=== PATIENT | male | born 1945 | race Caucasian/White ===

== ENCOUNTER 2016-10-20 01:14 | Inpatient (IN) | payer MEDICARE, MEDICAID ==
[~2016-10-20] VITALS: Ht 170.2 cm; Wt 81.6 kg
[~2016-10-20 01:14] MED LIST: ativan; carbamazepine
[2016-10-20] MEDS ORDERED: PRED-170 PO (01:31)
[2016-10-20] MEDS ORDERED: CARB200C4 PO (01:31)
[2016-10-20] MEDS ORDERED: METO25TA3 PO (01:31)
[2016-10-20] MEDS ORDERED: RISP1TAB27 PO (01:31)
[2016-10-20 01:59] LABS: BASOPHILS # (AUTO) 0.1 K/uL (0.0-8.0); BASOPHILS % (AUTO) 0.6 % (0.0-2.0); EOSINOPHILS # (AUTO) 0.1 K/uL (0.0-0.7); HEMATOCRIT 38.2 % (40-50); HEMOGLOBIN 12.8 G/DL (14.0-18.0); LYMPHOCYTES % (AUTO) 21.1 % (20.5-51.5); MEAN CORPUSCULAR HEMOGLOBIN 28.8 UUG (27.0-31.0); MEAN CORPUSCULAR HGB CONC 34 g/dL (32.0-37.0); MEAN CORPUSCULAR VOLUME 85.8 FL (82.0-92.0); MONOCYTES # (AUTO) 0.8 K/UL (0.1-1.30); MONOCYTES % (AUTO) 8.2 % (0.0-11.0); NEUTROPHILS # (AUTO) 6.6 K/UL (1.8-8.9); NEUTROPHILS % (AUTO) 69.1 % (38.5-71.5); PLATELET COUNT (AUTO) 319 K/UL (150-450); RED BLOOD CELL COUNT(AUTO) 4.45 MIL/UL (4.7-6.1); WHITE BLOOD COUNT (AUTO) 9.6 K/UL (4.0-11.2)
[2016-10-20 02:14] LABS: ALANINE AMINOTRANSFERASE 21 U/L (16-63); ALKALINE PHOSPHATASE 98 U/L (50-136); ASPARTATE AMINOTRANSFERASE 22 U/L (15-37); BILIRUBIN,DIRECT 0.1 mg/dL (0.0-0.2); BILIRUBIN,TOTAL 0.3 mg/dL (0.2-1.0); CARBON DIOXIDE 32 mmol/L (21-32); CHLORIDE 102 mmol/L (98-107); CREATININE 0.8 mg/dL (0.6-1.3); GLUCOSE 102 mg/dL (74-106); POTASSIUM 3.8 mmol/L (3.5-5.1); TOTAL PROTEIN, SERUM 6.7 g/dL (6.4-8.2); UREA NITROGEN, BLOOD 9 mg/dL (7-18)
[2016-10-20 02:23] LABS: ACETAMINOPHEN < 2.0 ug/mL (10-30)
[2016-10-20 02:29] LABS: ETHANOL < 3 MG/DL (0-0)
[2016-10-20] MEDS ORDERED: LEVOFLOXACIN 750MG/D5W 150 ML IV ONE (04:15)
[2016-10-20] MEDS ORDERED: LEVOFLOXACIN 750MG/D5W 0 ML IV ONE (04:34)
[2016-10-20] MEDS ORDERED: CEFTRIAXONE 1 G VIAL IM ONE (04:45)
[2016-10-20] MEDS ORDERED: AZITHROMYCIN 250 MG TABLET PO ONE (04:45)
[2016-10-20] MEDS ORDERED: LORAZEPAM 2 MG/1 ML VIAL IM ONE (04:45)
[2016-10-20] MEDS ORDERED: LORAZEPAM 2 MG/1 ML VIAL ONE (04:51)
[2016-10-20] MEDS ORDERED: CEFTRIAXONE 1 G VIAL ONE (04:51)
[2016-10-20] MEDS ORDERED: LIDOCAINE HCL 1% 20 ML VIAL ONE (04:52)
[2016-10-20] MEDS ORDERED: AZITHROMYCIN 250 MG TABLET ONE (04:54)
[2016-10-20] MEDS ORDERED: Z GUARD REMEDY PASTE 57 GM TUBE TOP PRN (05:15)
[2016-10-20] MEDS ORDERED: ACETAMINOPHEN 325 MG TABLET PO PRN ×2 (05:15→18:45)
[2016-10-20] MEDS ORDERED: ONDANSETRON 4 MG/2 ML VIAL IV PRN ×2 (05:15→18:45)
[2016-10-20] MEDS ORDERED: MAGNESIUM HYDROXIDE 30 ML LIQUID UDC PO PRN (05:15)
[2016-10-20] MEDS: PANTOPRAZOLE SODIUM 40 MG TABLET.DR PO SCH (07:45)
[2016-10-20] MEDS ORDERED: PANTOPRAZOLE SODIUM 40 MG TABLET.DR PO ONE (07:56)
[2016-10-20 08:08] LABS: BASOPHILS # (AUTO) 0.1 K/uL (0.0-8.0); BASOPHILS % (AUTO) 0.6 % (0.0-2.0); EOSINOPHILS # (AUTO) 0.2 K/uL (0.0-0.7); EOSINOPHILS % (AUTO) 1.6 % (0.0-7.0); HEMATOCRIT 40.5 % (40-50); LYMPHOCYTES # (AUTO) 1.8 K/UL (0.8-4.8); LYMPHOCYTES % (AUTO) 18.5 % (20.5-51.5); MEAN CORPUSCULAR HEMOGLOBIN 28.1 UUG (27.0-31.0); MEAN CORPUSCULAR HGB CONC 32 g/dL (32.0-37.0); MEAN CORPUSCULAR VOLUME 87.4 FL (82.0-92.0); MONOCYTES # (AUTO) 0.8 K/UL (0.1-1.30); MONOCYTES % (AUTO) 8.5 % (0.0-11.0); NEUTROPHILS # (AUTO) 6.8 K/UL (1.8-8.9); NEUTROPHILS % (AUTO) 70.8 % (38.5-71.5); PLATELET COUNT (AUTO) 323 K/UL (150-450); RED BLOOD CELL COUNT(AUTO) 4.64 MIL/UL (4.7-6.1); WHITE BLOOD COUNT (AUTO) 9.6 K/UL (4.0-11.2)
[2016-10-20 08:13] LABS: ABG BASE EXCESS 0.8 mmol/L; ABG HCO3 28.9 mmol/L; ABG PCO2 62.1 mmHg (35.0-45.0); ABG PH 7.286 (7.350-7.450); ABG PO2 102.7 mmHg (75.0-100.0); ABG SITE RIGHT RADIAL; ABG TOTAL HEMOGLOBIN 13.5 G/dL (13.5-18.0); COHb 4.5 % (0.5-1.5); MetHb 0.1 % (0.0-1.5); O2Hb 92.6 % (94.0-97.0); VENT MODE Nasal Cannula
[2016-10-20 08:15] LABS: CARBON DIOXIDE 34 mmol/L (21-32); CHLORIDE 104 mmol/L (98-107); CREATININE 1.1 mg/dL (0.6-1.3); GLUCOSE 104 mg/dL (74-106); POTASSIUM 4.4 mmol/L (3.5-5.1); UREA NITROGEN, BLOOD 13 mg/dL (7-18)
[2016-10-20] MEDS: ENOXAPARIN SODIUM 30 MG/0.3 ML DISP.SYRIN SUBCUT SCH (08:59)
[2016-10-20] MEDS ORDERED: ENOXAPARIN SODIUM 30 MG/0.3 ML DISP.SYRIN ONE (09:10)
[2016-10-20] MEDS: LORAZEPAM 2 MG/1 ML VIAL IV PRN ×2 (12:18→18:13)
[2016-10-20 16:58] VITALS: BP 159/78
[2016-10-20 17:33] LABS: *BILIRUBIN,URIN NEGATIVE (NEGATIVE); *BLOOD, URINE NEGATIVE (NEGATIVE); *CLARITY,URINE SLIGHTLY CLOUDY (CLEAR); *COLOR,URINE YELLOW (YELLOW); *KETONES,URINE NEGATIVE (NEGATIVE); *PROTEIN,URINE 1+ (NEGATIVE); *UROBILINOGEN,URINE 0.2 E.U./dl (NORMAL); LEUKOCYTE ESTERASE ,URINE NEGATIVE (NEGATIVE); NITRITE, URINE NEGATIVE (NEGATIVE); UGLUCOSE NEGATIVE (NEGATIVE)
[2016-10-20 17:40] LABS: *AMPHETAMINE, URINE NEGATIVE (NEGATIVE); *BARBITURATE, URINE NEGATIVE (NEGATIVE); *CANNABINOID, URINE NEGATIVE (NEGATIVE); *COCCAINE, URINE NEGATIVE (NEGATIVE); *OPIATE, URINE NEGATIVE (NEGATIVE); *PHENCYCLIDINE SCREEN,URINE NEGATIVE (NEGATIVE)
[2016-10-20 17:55] LABS: BACTERIA,URINE NONE SEEN /HPF (NONE SEEN); RBC,URINE 0-3 /HPF (0-3); SQUAMOUS EPITHELIAL CELL,UR NONE SEEN /HPF (NONE SEEN); WBC,URINE 0-3 /HPF (0-3)
[2016-10-20] MEDS ORDERED: MORPHINE SULFATE 2 MG/1 ML DISP.SYRIN IV PRN (18:45)
[2016-10-20] MEDS ORDERED: AZITHROMYCIN IV 500 MG in IV DEXTROSE 5% 250 ML IV SCH (18:45)
[2016-10-20] MEDS ORDERED: CEFTRIAXONE 1 G in IV DEXTROSE 5% 50 ML IV SCH (18:45)
[2016-10-20] MEDS ORDERED: LORAZEPAM 2 MG/1 ML VIAL IV PRN (18:45)
[2016-10-20] MEDS ORDERED: IV 1/2NS 1000 ML 1,000 ML IV PRN (18:45)
[2016-10-20] MEDS: METOPROLOL TARTRATE 25 MG TABLET PO SCH ×2 (19:45→21:00)
[2016-10-20] MEDS: risperiDONE 1 MG TABLET PO SCH (19:45)
[2016-10-20] MEDS ORDERED: MORPHINE SULFATE 4 MG/1 ML DISP.SYRIN IV PRN (20:15)
[2016-10-20] MEDS: ZOLPIDEM 5 MG TABLET PO PRN (22:59)
[2016-10-21] VITALS: BP 137/70
[2016-10-21] MEDS: LORAZEPAM 2 MG/1 ML VIAL IV PRN ×2 (01:15→08:53)
[2016-10-21 04:17] VITALS: BP 149/69
[2016-10-21] MEDS: CEFTRIAXONE 1 G in IV DEXTROSE 5% 50 ML IV SCH (05:42)
[2016-10-21] MEDS: risperiDONE 1 MG TABLET PO SCH ×2 (05:43→17:32)
[2016-10-21] MEDS: PANTOPRAZOLE SODIUM 40 MG TABLET.DR PO SCH (06:54)
[2016-10-21] MEDS ORDERED: PANTOPRAZOLE SODIUM 40 MG TABLET.DR PO SCH (07:00)
[2016-10-21 07:08] LABS: BASOPHILS % (AUTO) 0.5 % (0.0-2.0); EOSINOPHILS # (AUTO) 0.1 K/uL (0.0-0.7); HEMATOCRIT 42.9 % (40-50); HEMOGLOBIN 13.4 G/DL (14.0-18.0); LYMPHOCYTES # (AUTO) 1.3 K/UL (0.8-4.8); LYMPHOCYTES % (AUTO) 13.2 % (20.5-51.5); MEAN CORPUSCULAR HEMOGLOBIN 27.1 UUG (27.0-31.0); MEAN CORPUSCULAR HGB CONC 31 g/dL (32.0-37.0); MEAN CORPUSCULAR VOLUME 86.8 FL (82.0-92.0); MONOCYTES # (AUTO) 0.7 K/UL (0.1-1.30); MONOCYTES % (AUTO) 6.9 % (0.0-11.0); NEUTROPHILS # (AUTO) 7.8 K/UL (1.8-8.9); NEUTROPHILS % (AUTO) 78.4 % (38.5-71.5); PLATELET COUNT (AUTO) 276 K/UL (150-450); RED BLOOD CELL COUNT(AUTO) 4.94 MIL/UL (4.7-6.1); WHITE BLOOD COUNT (AUTO) 9.9 K/UL (4.0-11.2)
[2016-10-21 07:34] LABS: ALANINE AMINOTRANSFERASE 22 U/L (16-63); ALKALINE PHOSPHATASE 99 U/L (50-136); ASPARTATE AMINOTRANSFERASE 26 U/L (15-37); BILIRUBIN,TOTAL 0.2 mg/dL (0.2-1.0); CARBON DIOXIDE 32 mmol/L (21-32); CHLORIDE 104 mmol/L (98-107); CHOLESTEROL 205 mg/dL (<200); GLUCOSE 86 mg/dL (74-106); HDL CHOLESTEROL 44 mg/dL (40-60); PHOSPHOROUS 3.2 mg/dL (2.5-4.9); POTASSIUM 4.2 mmol/L (3.5-5.1); TOTAL PROTEIN, SERUM 6.6 g/dL (6.4-8.2); TRIGLYCERIDES 115 MG/DL (30-150); UREA NITROGEN, BLOOD 13 mg/dL (7-18)
[2016-10-21 08:37] LABS: THYROID STIMULATING HORMONE 0.677 mIU/mL (0.358-3.740)
[2016-10-21] MEDS: METOPROLOL TARTRATE 25 MG TABLET PO SCH ×2 (08:53→20:56)
[2016-10-21] MEDS: ENOXAPARIN SODIUM 30 MG/0.3 ML DISP.SYRIN SUBCUT SCH (08:55)
[2016-10-21] MEDS: AZITHROMYCIN IV 500 MG in IV DEXTROSE 5% 250 ML IV SCH ×2 (09:00→12:26)
[2016-10-21 09:28] LABS: IRON, SERUM 38 ug/dL (50-175)
[2016-10-21 12:00] VITALS: BP 121/68
[2016-10-21 13:20] VITALS: BP 121/68
[2016-10-21] MEDS: BENZTROPINE MESYLATE 1 MG TABLET PO SCH (19:34)
[2016-10-21] MEDS: CARBAMAZEPINE 200 MG TABLET PO SCH (19:34)
[2016-10-21 20:52] VITALS: BP 137/67
[2016-10-21] MEDS: LACTOBACILLUS RHAMNOSUS GG 1 EACH CAPSULE PO SCH (20:56)
[2016-10-21] MEDS: ATORVASTATIN 20 MG TABLET PO SCH (20:56)
[2016-10-22] MEDS: ZOLPIDEM 5 MG TABLET PO PRN (00:30)
[2016-10-22] MEDS: LORAZEPAM 2 MG/1 ML VIAL IV PRN ×2 (00:45→20:41)
[2016-10-22] MEDS: ALBUTEROL SULFATE 2.5 MG/3 ML NEBU NEB PRN ×2 (02:05→16:52)
[2016-10-22] MEDS: IPRATROPIUM BROMIDE 0.5 MG/2.5 ML NEBU NEB PRN (02:05)
[2016-10-22 04:27] VITALS: BP 139/52
[2016-10-22] MEDS: CEFTRIAXONE 1 G in IV DEXTROSE 5% 50 ML IV SCH (05:28)
[2016-10-22] MEDS: PANTOPRAZOLE SODIUM 40 MG TABLET.DR PO SCH (07:06)
[2016-10-22 08:00] VITALS: BP 119/68
[2016-10-22] MEDS: AZITHROMYCIN IV 500 MG in IV DEXTROSE 5% 250 ML IV SCH ×2 (08:17→08:58)
[2016-10-22] MEDS: CARBAMAZEPINE 200 MG TABLET PO SCH ×3 (08:44→17:41)
[2016-10-22] MEDS: METOPROLOL TARTRATE 25 MG TABLET PO SCH ×2 (08:44→20:33)
[2016-10-22] MEDS: HALOPERIDOL LACTATE 10 MG/5 ML ORAL SOLUTION UDC PO SCH ×2 (08:44→17:43)
[2016-10-22] MEDS: BENZTROPINE MESYLATE 1 MG TABLET PO SCH ×2 (08:44→17:41)
[2016-10-22] MEDS: LACTOBACILLUS RHAMNOSUS GG 1 EACH CAPSULE PO SCH ×2 (08:44→20:33)
[2016-10-22] MEDS: ENOXAPARIN SODIUM 30 MG/0.3 ML DISP.SYRIN SUBCUT SCH ×2 (08:45→09:02)
[2016-10-22 16:57] VITALS: BP 131/73
[2016-10-22 20:00] VITALS: BP 134/78
[2016-10-22] MEDS: ATORVASTATIN 20 MG TABLET PO SCH (20:33)
[2016-10-23] MEDS: ALBUTEROL SULFATE 2.5 MG/3 ML NEBU NEB PRN ×3 (00:13→15:22)
[2016-10-23] MEDS: IPRATROPIUM BROMIDE 0.5 MG/2.5 ML NEBU NEB PRN ×3 (00:13→15:22)
[2016-10-23 05:02] VITALS: BP 145/73
[2016-10-23] MEDS: CEFTRIAXONE 1 G in IV DEXTROSE 5% 50 ML IV SCH (06:49)
[2016-10-23] MEDS: PANTOPRAZOLE SODIUM 40 MG TABLET.DR PO SCH (06:50)
[2016-10-23] MEDS: BENZTROPINE MESYLATE 1 MG TABLET PO SCH ×2 (08:22→17:20)
[2016-10-23] MEDS: CARBAMAZEPINE 200 MG TABLET PO SCH ×3 (08:22→17:20)
[2016-10-23] MEDS: LACTOBACILLUS RHAMNOSUS GG 1 EACH CAPSULE PO SCH ×2 (08:22→20:16)
[2016-10-23] MEDS: HALOPERIDOL LACTATE 10 MG/5 ML ORAL SOLUTION UDC PO SCH ×2 (08:22→17:20)
[2016-10-23] MEDS: METOPROLOL TARTRATE 25 MG TABLET PO SCH ×2 (08:23→20:17)
[2016-10-23] MEDS: ENOXAPARIN SODIUM 30 MG/0.3 ML DISP.SYRIN SUBCUT SCH (08:28)
[2016-10-23] MEDS: AZITHROMYCIN IV 500 MG in IV DEXTROSE 5% 250 ML IV SCH (09:21)
[2016-10-23] MEDS: LORAZEPAM 2 MG/1 ML VIAL IV PRN ×2 (10:42→18:11)
[2016-10-23 15:27] VITALS: BP 138/73
[2016-10-23 20:00] VITALS: BP 129/64
[2016-10-23] MEDS: ATORVASTATIN 20 MG TABLET PO SCH (20:17)
[2016-10-24] MEDS: CEFTRIAXONE 1 G in IV DEXTROSE 5% 50 ML IV SCH (06:12)
[2016-10-24] MEDS: PANTOPRAZOLE SODIUM 40 MG TABLET.DR PO SCH (06:16)
[2016-10-24] MEDS: BENZTROPINE MESYLATE 1 MG TABLET PO SCH ×3 (08:37→17:28)
[2016-10-24] MEDS: LACTOBACILLUS RHAMNOSUS GG 1 EACH CAPSULE PO SCH ×2 (08:37→20:18)
[2016-10-24] MEDS: CARBAMAZEPINE 200 MG TABLET PO SCH ×4 (08:37→17:28)
[2016-10-24] MEDS: HALOPERIDOL LACTATE 10 MG/5 ML ORAL SOLUTION UDC PO SCH ×3 (08:38→17:29)
[2016-10-24] MEDS: ENOXAPARIN SODIUM 30 MG/0.3 ML DISP.SYRIN SUBCUT SCH (08:38)
[2016-10-24] MEDS: METOPROLOL TARTRATE 25 MG TABLET PO SCH ×3 (08:42→11:53)
[2016-10-24 08:51] VITALS: BP 160/73
[2016-10-24] MEDS: AZITHROMYCIN IV 500 MG in IV DEXTROSE 5% 250 ML IV SCH (09:00)
[2016-10-24] MEDS: ALBUTEROL SULFATE 2.5 MG/3 ML NEBU NEB PRN (10:56)
[2016-10-24] MEDS: IPRATROPIUM BROMIDE 0.5 MG/2.5 ML NEBU NEB PRN (10:56)
[2016-10-24 12:44] VITALS: BP 144/75
[2016-10-24 16:00] VITALS: BP 148/86
[2016-10-24 19:00] VITALS: BP 164/73
[2016-10-24] MEDS: ATORVASTATIN 20 MG TABLET PO SCH (20:18)
[2016-10-25 06:23] VITALS: BP 159/70
[2016-10-25] MEDS: PANTOPRAZOLE SODIUM 40 MG TABLET.DR PO SCH (06:32)
[2016-10-25] MEDS: CEFTRIAXONE 1 G in IV DEXTROSE 5% 50 ML IV SCH (06:32)
[2016-10-25] MEDS: AZITHROMYCIN IV 500 MG in IV DEXTROSE 5% 250 ML IV SCH (08:26)
[2016-10-25] MEDS: BENZTROPINE MESYLATE 1 MG TABLET PO SCH ×2 (08:28→17:04)
[2016-10-25] MEDS: LACTOBACILLUS RHAMNOSUS GG 1 EACH CAPSULE PO SCH ×2 (08:28→20:57)
[2016-10-25] MEDS: CARBAMAZEPINE 200 MG TABLET PO SCH ×3 (08:28→17:04)
[2016-10-25] MEDS: HALOPERIDOL LACTATE 10 MG/5 ML ORAL SOLUTION UDC PO SCH ×3 (08:29→17:05)
[2016-10-25] MEDS: ENOXAPARIN SODIUM 30 MG/0.3 ML DISP.SYRIN SUBCUT SCH (08:33)
[2016-10-25] MEDS: METOPROLOL TARTRATE 25 MG TABLET PO SCH ×2 (08:36→21:01)
[2016-10-25] MEDS: ALBUTEROL SULFATE 2.5 MG/3 ML NEBU NEB PRN (09:12)
[2016-10-25] MEDS: IPRATROPIUM BROMIDE 0.5 MG/2.5 ML NEBU NEB PRN (09:12)
[2016-10-25 15:51] VITALS: BP 130/67
[2016-10-25 20:00] VITALS: BP 133/61
[2016-10-25] MEDS: ATORVASTATIN 20 MG TABLET PO SCH (20:57)
[2016-10-26] VITALS: BP 142/63
[2016-10-26] MEDS: CEFTRIAXONE 1 G in IV DEXTROSE 5% 50 ML IV SCH (05:54)
[2016-10-26] MEDS: PANTOPRAZOLE SODIUM 40 MG TABLET.DR PO SCH (06:01)
[2016-10-26] MEDS: CARBAMAZEPINE 200 MG TABLET PO SCH ×3 (08:37→17:24)
[2016-10-26] MEDS: BENZTROPINE MESYLATE 1 MG TABLET PO SCH ×2 (08:37→17:24)
[2016-10-26] MEDS: LACTOBACILLUS RHAMNOSUS GG 1 EACH CAPSULE PO SCH ×2 (08:37→20:28)
[2016-10-26] MEDS: METOPROLOL TARTRATE 25 MG TABLET PO SCH ×2 (08:37→20:28)
[2016-10-26] MEDS: HALOPERIDOL LACTATE 10 MG/5 ML ORAL SOLUTION UDC PO SCH ×2 (08:38→13:24)
[2016-10-26] MEDS: ENOXAPARIN SODIUM 30 MG/0.3 ML DISP.SYRIN SUBCUT SCH (08:39)
[2016-10-26] MEDS: AZITHROMYCIN IV 500 MG in IV DEXTROSE 5% 250 ML IV SCH (09:02)
[2016-10-26] MEDS ORDERED: HALOPERIDOL LACTATE 10 MG/5 ML ORAL SOLUTION UDC PO SCH (17:00)
[2016-10-26] MEDS ORDERED: MENT71OI TOP (17:16)
[2016-10-26] MEDS ORDERED: BENZ1TAB7 PO (17:16)
[2016-10-26] MEDS ORDERED: IPRA0.2S6 NEB (17:16)
[2016-10-26] MEDS ORDERED: CARB200T8 PO (17:16)
[2016-10-26] MEDS ORDERED: METO25TA6 PO (17:16)
[2016-10-26] MEDS ORDERED: ATOR20TA PO (17:16)
[2016-10-26] MEDS ORDERED: ALBU2.5V7 NEB (17:16)
[2016-10-26] MEDS ORDERED: HALO2ORA PO (17:23)
[2016-10-26 20:28] VITALS: BP 144/67
[2016-10-26] MEDS: ATORVASTATIN 20 MG TABLET PO SCH (20:28)
[2016-10-26] MEDS: IPRATROPIUM BROMIDE 0.5 MG/2.5 ML NEBU NEB PRN (21:03)
[2016-10-26] MEDS: ALBUTEROL SULFATE 2.5 MG/3 ML NEBU NEB PRN (21:03)
[2016-10-27] MEDS ORDERED: HALO2TAB PO (09:07)
[2016-10-27] MEDS ORDERED: BENZ1TAB7 PO (09:08)
[2016-10-27] MEDS ORDERED: CARB200T PO (09:09)
== END 2016-10-26 21:41 | DRG 190 ==
LOC: ER 01:18 → MED 07:27 → TELE 09:34 → MED 10-21 14:50
PROVIDERS: ADMIT Internal Medicine; ATTEND Internal Medicine
PROC: 5A09357 Assistance with Respiratory Ventilation, Less than 24 Consecutive Hours, Continuous Positive Airway Pressure (ICD-10-PCS; principal; 2016-10-20)
DX: J44.0 Chronic obstructive pulmonary disease with (acute) lower respiratory infection (principal); J69.0 Pneumonitis due to inhalation of food and vomit; G92 Toxic encephalopathy; J96.02 Acute respiratory failure with hypercapnia; E43 Unspecified severe protein-calorie malnutrition; J44.1 Chronic obstructive pulmonary disease with (acute) exacerbation; Z87.820 Personal history of traumatic brain injury; Z72.0 Tobacco use; N40.1 Benign prostatic hyperplasia with lower urinary tract symptoms; R35.0 Frequency of micturition; I70.0 Atherosclerosis of aorta; F31.9 Bipolar disorder, unspecified; J84.10 Pulmonary fibrosis, unspecified; D64.9 Anemia, unspecified; I10 Essential (primary) hypertension; Z79.899 Other long term (current) drug therapy; Z68.28 Body mass index [BMI] 28.0-28.9, adult
CPT/HCPCS: 36415; 36600; 70030-TC; 71010; 71250; 80307; 83550; 83605; 83735; 84100; 84443; 85025; 85730; 87040; 87086; 93005; 94640; 94660; 94664; 97116; 97161; 97530; G0480; G0480-TC; J0456; J0696; J1650; J1956; J2060; J3490; J3590; J7050; J7060; Q0144

== ENCOUNTER 2016-10-26 19:40 | Inpatient (IN) | payer MEDICARE, MEDICAID ==
[~2016-10-26] VITALS: Ht 170.2 cm; Wt 68.0 kg
[~2016-10-26 19:40] MED LIST changes: +ALBU2.5V7 NEB; +ATOR20TA PO; +BENZ1TAB7 PO; +CARB200C4 PO; +CARB200T8 PO; +HALO2ORA PO; +IPRA0.2S6 NEB; +MENT71OI TOP; +METO25TA3 PO; +METO25TA6 PO; -ativan; -carbamazepine
[2016-10-26] MEDS ORDERED: LORAZEPAM 1 MG TABLET PO PRN (20:45)
[2016-10-26] MEDS ORDERED: MAGNESIUM HYDROXIDE 30 ML LIQUID UDC PO PRN (20:45)
[2016-10-26] MEDS ORDERED: MAG HYDROX/AL HYDROX/SIMETH 30 ML LIQUID UDC PO PRN (20:45)
[2016-10-26] MEDS ORDERED: ALBUTEROL SULFATE 2.5 MG/3 ML NEBU NEB PRN (22:30)
--- NOTE | 2016-10-26 22:46 | NUR ---
PATIENT RECEIVED FROM [facility] (2ND UNIT) FLOOR VIA BED @ 2130. PATIENT ON A 14 DAY HOLD. PATIENT ALERT/ORIENTED X1-2 AT TIMES WITH CONFUSION NOTED. PATIENT UNABLE TO FORMULATE PLAN OF CARE, PATIENT IS PARANOID,SUSPICIOUS, PREOCCUPIED WITH OWN THOUGHTS. POOR JUDGEMENT, POOR IMPULSE CONTROL, AND POOR INSIGHT. PATIENT'S SKIN IS INTACT, SHOWERED GIVEN THIS EVENING. CONTRABAND CHECKED HAD NECKLACE, WATCH PLACED IN SAFE. PATIENT IS EASILY AGITATED, IRRITABLE AND UNPREDICTABLE. NO AGGRESSIVE OR COMBATIVE BEHAVIOR NOTED, WILL CONTINUE TO MONITOR AND REDIRECT NEEDED. PATIENT ON 2L OF OXYGEN VIA NASAL CANNULA, 1:1 SITTER AT ARMS REACH FOR PATIENT'S SAFETY. BED IN LOWEST POSITION, BED LOCKED, AND BED ALARM ON WHILE IN BED.
[2016-10-26] MEDS ORDERED: TEMAZEPAM 7.5 MG CAPSULE ONE (23:47)
[2016-10-27] MEDS: METOPROLOL TARTRATE 25 MG TABLET PO SCH ×3 (09:00→20:31)
[2016-10-27] MEDS ORDERED: BENZTROPINE MESYLATE 1 MG TABLET PO SCH (09:00)
[2016-10-27] MEDS ORDERED: HALO2TAB PO (09:07)
[2016-10-27] MEDS ORDERED: BENZ1TAB7 PO (09:08)
[2016-10-27] MEDS ORDERED: CARB200T PO (09:09)
--- NOTE | 2016-10-27 10:05 | NUR ---
0900 Patient refused to check his B/P and refused to take his antihypertensive medication. 1000 again, offered his am med and to check his B/P but still strongly refused in spite of educating the patient.Will continue to monitor patient behavior.
[2016-10-27] MEDS ORDERED: IPRATROPIUM BROMIDE 0.5 MG/2.5 ML NEBU NEB PRN (10:45)
[2016-10-27] MEDS ORDERED: Z GUARD REMEDY PASTE 57 GM TUBE TOP PRN (10:45)
[2016-10-27 10:50] VITALS: BP 159/84
--- NOTE | 2016-10-27 15:59 | NUR ---
Initial discharge instructions: The patient resides at home [[address] [place] [address]] independently. The patient stated that he is open to short term SNF placement. SW spoke with the patient's sister Katty Diggs who stated that she is also open to SNF placement for the patient. SW will speak with patient, family, and MD regarding most appropriate discharge plan. SS will form a safe and proper discharge.
[2016-10-27 16:40] VITALS: BP 139/75
[2016-10-27 20:00] VITALS: BP 167/60
[2016-10-27] MEDS: TEMAZEPAM 7.5 MG CAPSULE PO PRN ×2 (20:30)
[2016-10-27] MEDS: ATORVASTATIN 20 MG TABLET PO SCH (20:31)
[2016-10-28 07:30] VITALS: BP 133/77
[2016-10-28] MEDS ORDERED: HALOPERIDOL 1 MG TABLET PO SCH (09:00)
[2016-10-28] MEDS: NICOTINE 14 MG/24HR PATCH TD SCH (09:10)
[2016-10-28] MEDS: CARBAMAZEPINE 200 MG TABLET PO SCH ×4 (09:10→18:40)
[2016-10-28] MEDS: BENZTROPINE MESYLATE 1 MG TABLET PO SCH ×4 (09:10→18:40)
[2016-10-28] MEDS: HALOPERIDOL 2 MG TABLET PO SCH ×4 (09:11→18:40)
[2016-10-28] MEDS: METOPROLOL TARTRATE 25 MG TABLET PO SCH ×2 (09:11→20:39)
[2016-10-28 15:41] VITALS: BP 113/63
[2016-10-28 20:00] VITALS: BP 119/64
[2016-10-28] MEDS: ATORVASTATIN 20 MG TABLET PO SCH (20:38)
--- NOTE | 2016-10-28 20:48 | NUR ---
PT RECEIVED IN HIS ROOM AWAKE, MILDLY PLEASANT UPON ADMISSION, FORGETFUL, ASKING TO SEE HIS PSYCHIATRIST WHO WAS JUST IN TO SEE HIM ABOUT 30 MINS, SITTER AT BEDSIDE, ALSO TELLING THE BITUMINOUS DISTRIBUTOR OPERATOR THAT 4 [place] POLICE CAME TO HIS HOUSE TO TAKE HIM AND WERE ROUGH ON HIM, STILL SUSPICIOUS AND PARANOID ABOUT HIS MEDICATION SAYING HIS DOCTOR SAID ALL THESE MEDICATIONS ARE POISON. PERIODICALLY REMOVES HIS OXYGEN SAYING, I CAN TAKE IT OFF FOR 10 MINS, REALITY ORIENTATION PROVIDED, WILL CONTINUE TO MONITOR CLOSELY.
[2016-10-28] MEDS: ACETAMINOPHEN 325 MG TABLET PO PRN (22:16)
[2016-10-29] MEDS: CARBAMAZEPINE 200 MG TABLET PO SCH ×3 (09:00→18:36)
[2016-10-29] MEDS: METOPROLOL TARTRATE 25 MG TABLET PO SCH ×2 (09:00→21:00)
[2016-10-29] MEDS: NICOTINE 14 MG/24HR PATCH TD SCH (09:00)
[2016-10-29] MEDS: HALOPERIDOL 2 MG TABLET PO SCH ×3 (09:00→18:37)
[2016-10-29] MEDS: BENZTROPINE MESYLATE 1 MG TABLET PO SCH ×3 (09:00→18:36)
[2016-10-29] MEDS: ATORVASTATIN 20 MG TABLET PO SCH (21:00)
[2016-10-29 21:05] VITALS: BP 147/79
[2016-10-29] MEDS: ACETAMINOPHEN 325 MG TABLET PO PRN (21:45)
[2016-10-30 07:30] VITALS: BP 133/70
[2016-10-30 08:08] LABS: BASOPHILS # (AUTO) 0.1 K/uL (0.0-8.0); EOSINOPHILS # (AUTO) 0.1 K/uL (0.0-0.7); EOSINOPHILS % (AUTO) 1.3 % (0.0-7.0); HEMATOCRIT 40.8 % (40-50); HEMOGLOBIN 13.5 G/DL (14.0-18.0); LYMPHOCYTES # (AUTO) 1.8 K/UL (0.8-4.8); LYMPHOCYTES % (AUTO) 20.5 % (20.5-51.5); MEAN CORPUSCULAR HEMOGLOBIN 28.7 UUG (27.0-31.0); MEAN CORPUSCULAR HGB CONC 33 g/dL (32.0-37.0); MEAN CORPUSCULAR VOLUME 86.7 FL (82.0-92.0); MONOCYTES # (AUTO) 0.8 K/UL (0.1-1.30); MONOCYTES % (AUTO) 9.2 % (0.0-11.0); NEUTROPHILS # (AUTO) 6.1 K/UL (1.8-8.9); PLATELET COUNT (AUTO) 385 K/UL (150-450); RED BLOOD CELL COUNT(AUTO) 4.71 MIL/UL (4.7-6.1); WHITE BLOOD COUNT (AUTO) 8.9 K/UL (4.0-11.2)
[2016-10-30 08:25] LABS: ALANINE AMINOTRANSFERASE 32 U/L (16-63); ALKALINE PHOSPHATASE 117 U/L (50-136); ASPARTATE AMINOTRANSFERASE 27 U/L (15-37); BILIRUBIN,TOTAL 0.2 mg/dL (0.2-1.0); CARBON DIOXIDE 32 mmol/L (21-32); CHLORIDE 100 mmol/L (98-107); CREATININE 0.9 mg/dL (0.6-1.3); GLUCOSE 100 mg/dL (74-106); MAGNESIUM 1.8 mg/dL (1.8-2.4); PHOSPHOROUS 3.8 mg/dL (2.5-4.9); POTASSIUM 4.1 mmol/L (3.5-5.1); UREA NITROGEN, BLOOD 17 mg/dL (7-18)
[2016-10-30] MEDS: HALOPERIDOL 2 MG TABLET PO SCH ×3 (09:23→17:29)
[2016-10-30] MEDS: BENZTROPINE MESYLATE 1 MG TABLET PO SCH ×3 (09:23→17:29)
[2016-10-30] MEDS: CARBAMAZEPINE 200 MG TABLET PO SCH ×3 (09:23→17:29)
[2016-10-30] MEDS: NICOTINE 14 MG/24HR PATCH TD SCH (09:24)
[2016-10-30] MEDS: METOPROLOL TARTRATE 25 MG TABLET PO SCH ×2 (09:24→20:26)
[2016-10-30] MEDS: DOCUSATE SODIUM 100 MG CAPSULE PO SCH ×2 (13:50→20:25)
[2016-10-30] MEDS: FAMOTIDINE 20 MG TABLET PO SCH (13:50)
[2016-10-30 16:00] VITALS: BP 107/63
[2016-10-30 20:14] VITALS: BP 142/70
[2016-10-30] MEDS: ATORVASTATIN 20 MG TABLET PO SCH (20:25)
[2016-10-30] MEDS: ACETAMINOPHEN 325 MG TABLET PO PRN (20:25)
--- NOTE | 2016-10-30 21:15 | NUR ---
PT AWAKE, STILL QUESTIONS HIS MEDS, THINKS HE IS GETTING TOO MANY OF THEM, C/O PAIN ON RIGHT FLANK AREA, MED COMPLIANT BUT WITH PROMPTING, SITTER AT BEDSIDE, WILL CONTINUE TO MONITOR CLOSELY.
[2016-10-31 07:30] VITALS: BP 133/70
--- NOTE | 2016-10-31 08:28 | NUR ---
Suede Cleaner Matilde Bey, community health representative from [facility] came to assess the patient on Thursday10/29/16 at 11:30 am. SW spoke with the patient after who stated that he does not want to go to a SNF and that he would like to return home and that his son will be taking care of him. SW spoke with the patient's son Dashawn Diggs who also stated that he does not want the patient to be placed at a SNF and that he wants to take him home and take care of him. Both patient and patient's son refused SNF placement.
[2016-10-31] MEDS: NICOTINE 14 MG/24HR PATCH TD SCH (09:00)
[2016-10-31] MEDS: BENZTROPINE MESYLATE 1 MG TABLET PO SCH ×3 (09:59→17:38)
[2016-10-31] MEDS: CARBAMAZEPINE 200 MG TABLET PO SCH ×3 (10:00→17:38)
[2016-10-31 10:01] VITALS: BP 133/70
[2016-10-31] MEDS: FAMOTIDINE 20 MG TABLET PO SCH (10:01)
[2016-10-31] MEDS: METOPROLOL TARTRATE 25 MG TABLET PO SCH (10:01)
[2016-10-31] MEDS: HALOPERIDOL 2 MG TABLET PO SCH ×3 (10:02→17:39)
[2016-10-31] MEDS: DOCUSATE SODIUM 100 MG CAPSULE PO SCH (10:02)
--- NOTE | 2016-10-31 12:18 | NUR ---
DC Note: The patient will be discharged today back home [[address] [place] [address]] where he resides independently. The patient was referred to [facility] however both patient and son refused placement. SW spoke with the patients son Dashawn Diggs and he is aware and agreeable with the discharge plan. He stated that he will be taking care of the patient at his home. SW spoke with the patient's sister Katty Diggs and informed her of the DC plan. 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 óLpez Borja . The patient does not have a psychiatrist and may follow-up with Dr. Froilan Boland , Dr. Daphne Fuentes , or Dr. Moe Licea . The patient may also contact the crisis line at . For smoking cessation, patient was referred to [employer] 800-LUNGUSA and [employer] [phone]. Patient was also referred to the Nicotine Anonymous meeting on Thursday November 03, 2016 at 8:00 pm at [facility] [[address], [place] [address]]. The patients prescriptions must be faxed to [facility] [ Fax: [phone]]. The patient has an open episode with [facility] however they will not be accepting the patient back. Patient will be referred to [facility] [phone].
--- NOTE | 2016-10-31 19:36 | NUR ---
Patient for discharged home today under the care of his son , Dashawn, discharged instructions reviewed with patient and son, education materials given, educate the importance of taking his medications and follow up check-up, prescriptions given and was faxed to [facility], belongings and valuables returned to patient, verbalized understanding and signed discharged papers. Patient was discharged home at around 1907 with portable oxygen via wheelchair accompanied by son and sitter. No s/s of distress or discomfort noted at the time of discharge.
== END 2016-10-31 17:15 | disposition home or self-care (01) | DRG 885 ==
LOC: GPS 19:40
PROVIDERS: ADMIT Psychiatry & Neurology Psychiatry; ATTEND Psychiatry & Neurology Psychiatry
DX: F31.64 Bipolar disorder, current episode mixed, severe, with psychotic features (principal); E43 Unspecified severe protein-calorie malnutrition; J44.1 Chronic obstructive pulmonary disease with (acute) exacerbation; G95.20 Unspecified cord compression; I10 Essential (primary) hypertension; J84.10 Pulmonary fibrosis, unspecified; D64.9 Anemia, unspecified; E78.5 Hyperlipidemia, unspecified; M48.04 Spinal stenosis, thoracic region; R73.03 Prediabetes; Z91.14 Patient's other noncompliance with medication regimen; K59.00 Constipation, unspecified; Z91.19 Patient's noncompliance with other medical treatment and regimen; M48.06 Spinal stenosis, lumbar region; Z72.0 Tobacco use
CPT/HCPCS: 36415; 83735; 84100; 85025; 97116; 97161; 97530

== ENCOUNTER 2017-04-21 14:55 | Outpatient (CLI) | payer MEDICARE, MEDICAID ==
[~2017-04-21 14:55] MED LIST changes: -BENZ1TAB7 PO; -CARB200C4 PO; -CARB200T8 PO; -HALO2ORA PO; -METO25TA3 PO
== END 2017-04-21 23:59 | disposition home or self-care (01) ==
LOC: XRAY 14:55
PROVIDERS: ATTEND Internal Medicine
DX: J98.4 Other disorders of lung (principal); I70.0 Atherosclerosis of aorta; M47.894 Other spondylosis, thoracic region; S22.41XA Multiple fractures of ribs, right side, initial encounter for closed fracture; X58.XXXA Exposure to other specified factors, initial encounter; Y93.89 Activity, other specified; Y92.89 Other specified places as the place of occurrence of the external cause; Y99.8 Other external cause status
CPT/HCPCS: 71046

== ENCOUNTER 2018-02-01 11:28 | Inpatient (IN) | payer MEDICARE, MEDICAID ==
[~2018-02-01] VITALS: Ht 170.2 cm; Wt 68.0 kg
[2018-02-01] MEDS ORDERED: methylPREDNISolone SOD SUCC 125 MG/2 ML VIAL ONE (11:57)
[2018-02-01] MEDS ORDERED: IPRATROPIUM BROMIDE 0.5 MG/2.5 ML NEBU NEB ONE (12:00)
[2018-02-01] MEDS ORDERED: methylPREDNISolone SOD SUCC 125 MG/2 ML VIAL IV ONE (12:00)
[2018-02-01] MEDS ORDERED: ALBUTEROL SULFATE 2.5 MG/3 ML NEBU NEB ONE (12:00)
[2018-02-01] MEDS ORDERED: IPRATROPIUM BROMIDE 0.5 MG/2.5 ML NEBU ONE (12:10)
[2018-02-01] MEDS ORDERED: ALBUTEROL SULFATE 2.5 MG/ 0.5 ML NEBU ONE (12:10)
[2018-02-01 12:13] LABS: BASOPHILS # (AUTO) 0.1 K/uL (0.0-8.0); EOSINOPHILS # (AUTO) 0.3 K/uL (0.0-0.7); EOSINOPHILS % (AUTO) 2.9 % (0.0-7.0); HEMATOCRIT 39.2 % (36.7-47.1); HEMOGLOBIN 13.4 g/dL (12.5-16.3); LYMPHOCYTES # (AUTO) 2.4 K/uL (20.0-40.0); LYMPHOCYTES % (AUTO) 25.2 % (20.5-51.5); MEAN CORPUSCULAR HEMOGLOBIN 27.6 uug (23.8-33.4); MEAN CORPUSCULAR HGB CONC 34 g/dL (32.5-36.3); MEAN CORPUSCULAR VOLUME 80.7 fL (73.0-96.2); MONOCYTES % (AUTO) 10.7 % (0.0-11.0); NEUTROPHILS # (AUTO) 5.8 K/uL (1.8-8.9); NEUTROPHILS % (AUTO) 60.2 % (38.5-71.5); PLATELET COUNT (AUTO) 330 K/uL (152-348); RED BLOOD CELL COUNT(AUTO) 4.86 MIL/uL (4.06-5.63); WHITE BLOOD COUNT (AUTO) 9.7 K/uL (3.6-10.2)
[2018-02-01 12:17] LABS: CARBON DIOXIDE 26 mmol/L (21-32); CHLORIDE 103 mmol/L (98-107); CREATININE 1.2 mg/dL (0.6-1.3); GLUCOSE 102 mg/dL (74-106); UREA NITROGEN, BLOOD 14 mg/dL (7-18)
[2018-02-01 12:32] LABS: ALANINE AMINOTRANSFERASE 22 U/L (16-63); ALKALINE PHOSPHATASE 121 U/L (50-136); ASPARTATE AMINOTRANSFERASE 17 U/L (15-37); BILIRUBIN,DIRECT 0.1 mg/dL (0.0-0.2); BILIRUBIN,TOTAL 0.3 mg/dL (0.2-1.0); TOTAL PROTEIN, SERUM 8.1 g/dL (6.4-8.2)
[2018-02-01] MEDS ORDERED: RISP1TAB27 PO (12:34)
[2018-02-01] MEDS ORDERED: DIVA500T4 PO (12:34)
[2018-02-01] MEDS ORDERED: FLUT100B3 IH (12:34)
[2018-02-01] MEDS ORDERED: ATOR40TA PO (12:34)
[2018-02-01] MEDS ORDERED: ASPI-605 PO (12:34)
[2018-02-01] MEDS ORDERED: METO50TA16 PO (12:34)
[2018-02-01] MEDS ORDERED: IPRA3AMP22 IH (12:34)
[2018-02-01] MEDS ORDERED: OXCA150T5 PO (12:34)
--- NOTE | 2018-02-01 13:24 | NUR ---
Full telephone SBAR report received by CHART READERABDIAS Stern.
--- NOTE | 2018-02-01 14:10 | NUR ---
pt transfered to [facility] in stable condition. [facility] provided for pt per request
--- NOTE | 2018-02-01 14:45 | NUR ---
Pt received from ER a&ox3. Oriented pt to room and updated with plan of care. Pt verbalized understanding. Pt stable and nad noted upon admission.
[2018-02-01] MEDS ORDERED: ACETAMINOPHEN 325 MG TABLET PO PRN (15:15)
[2018-02-01] MEDS ORDERED: ONDANSETRON 4 MG/2 ML VIAL IV PRN (15:15)
[2018-02-01 16:27] VITALS: BP 143/62
[2018-02-01] MEDS ORDERED: methylPREDNISolone SOD SUCC 40 MG/ML VIAL IV SCH (17:00)
[2018-02-01] MEDS ORDERED: methylPREDNISolone SOD SUCC 125 MG/2 ML VIAL IV SCH (17:00)
[2018-02-01] MEDS: IPRATROPIUM BROMIDE 0.5 MG/2.5 ML NEBU NEB SCH (18:56)
[2018-02-01] MEDS: ALBUTEROL SULFATE 2.5 MG/3 ML NEBU NEB SCH (18:56)
--- NOTE | 2018-02-01 20:00 | NUR ---
Pt observed to be agitated, restless and uncooperative with care at this time. Relaxation techniques, redirection and reorientation provided to patient, but ineffective. Pt refusing vitals to be taken at this time, and tele monitor noted to be sinus tachy with heart rate at 105. Safe environment implemented. Call light within reach. Will continue to monitor closely.
[2018-02-01 20:42] VITALS: BP 114/59
[2018-02-01] MEDS ORDERED: risperiDONE 1 MG TABLET PO SCH (21:00)
[2018-02-01] MEDS: ATORVASTATIN 40 MG TABLET PO SCH (21:00)
[2018-02-01] MEDS: METOPROLOL TARTRATE 50 MG TABLET PO SCH (21:00)
[2018-02-01] MEDS ORDERED: DIVALPROEX ER 500 MG TAB.SR.24H PO SCH (21:00)
[2018-02-01] MEDS ORDERED: OXCARBAZEPINE 150 MG TABLET PO SCH (21:00)
[2018-02-01] MEDS: GUAIFENESIN LA 600 MG TABLET.SA PO SCH (21:24)
--- NOTE | 2018-02-01 22:30 | NUR ---
Pt refusing routine 2100 medications. Pt verbally acting out stating, "I do not belong here. This is not a good hospital, this room is too cold and I have sinuses. Medications will not help me. You can not help me. I want to go home." MD made aware of patient's behavior and received orders for psych consult. Frequent redirection and education provided to patient, but ineffective. Engineering paged for adjustment of heater ventilation. Will continue to monitor.
--- NOTE | 2018-02-02 | NUR ---
Pt refusing vitals to be taken at this time. No s/s of acute distress noted.
[2018-02-02] MEDS: IPRATROPIUM BROMIDE 0.5 MG/2.5 ML NEBU NEB SCH ×5 (01:25→19:11)
[2018-02-02] MEDS: ALBUTEROL SULFATE 2.5 MG/3 ML NEBU NEB SCH ×5 (01:25→19:11)
--- NOTE | 2018-02-02 02:00 | NUR ---
Pt refused scheduled breathing treatment. Education provided, but ineffective. Will continue to monitor.
--- NOTE | 2018-02-02 03:00 | NUR ---
Pt off tele monitor and refusing to be have tele pads be reapplied. Paged clinical practitioner CITIZEN PARTICIPATION SPECIALIST, awaiting orders at this time. No s/s of acute distress noted.
--- NOTE | 2018-02-02 04:52 | NUR ---
Attempted to apply tele monitor, but pt continuously refuses to be touched and remains agitated.
--- NOTE | 2018-02-02 06:30 | NUR ---
PT CONTINUOUSLY REFUSING ALL CARE AT THIS TIME. SAFE ENVIRONMENT IMPLEMENTED. WILL ENDORSE ACCORDINGLY.
[2018-02-02 06:42] LABS: BASOPHILS % (AUTO) 0.2 % (0.0-2.0); HEMATOCRIT 38.9 % (36.7-47.1); HEMOGLOBIN 12.8 g/dL (12.5-16.3); LYMPHOCYTES # (AUTO) 1.8 K/uL (20.0-40.0); MEAN CORPUSCULAR HEMOGLOBIN 26.7 uug (23.8-33.4); MEAN CORPUSCULAR HGB CONC 33 g/dL (32.5-36.3); MEAN CORPUSCULAR VOLUME 81.1 fL (73.0-96.2); MONOCYTES # (AUTO) 0.9 K/uL (2.0-10.0); MONOCYTES % (AUTO) 6.5 % (0.0-11.0); NEUTROPHILS # (AUTO) 11.3 K/uL (1.8-8.9); NEUTROPHILS % (AUTO) 80.3 % (38.5-71.5); PLATELET COUNT (AUTO) 334 K/uL (152-348); RED BLOOD CELL COUNT(AUTO) 4.79 MIL/uL (4.06-5.63)
[2018-02-02 06:56] LABS: ALANINE AMINOTRANSFERASE 20 U/L (16-63); ALKALINE PHOSPHATASE 115 U/L (50-136); ASPARTATE AMINOTRANSFERASE 16 U/L (15-37); BILIRUBIN,TOTAL 0.3 mg/dL (0.2-1.0); CARBON DIOXIDE 24 mmol/L (21-32); CHLORIDE 103 mmol/L (98-107); CREATININE 1.1 mg/dL (0.6-1.3); GLUCOSE 118 mg/dL (74-106); MAGNESIUM 1.8 mg/dL (1.8-2.4); PHOSPHOROUS 3.8 mg/dL (2.5-4.9); POTASSIUM 4.2 mmol/L (3.5-5.1); TOTAL PROTEIN, SERUM 8.1 g/dL (6.4-8.2); UREA NITROGEN, BLOOD 21 mg/dL (7-18)
[2018-02-02] MEDS: methylPREDNISolone SOD SUCC 40 MG/ML VIAL IV SCH ×5 (07:03→21:02)
[2018-02-02] MEDS ORDERED: OXCARBAZEPINE 150 MG TABLET PO SCH (07:04)
--- NOTE | 2018-02-02 08:00 | NUR ---
RESTING QUIET IN BED NO SOB OR PAIN ,SITTER 1:1 AT BEDSIDE AND CALL LIGHT WITHIN REACH AND INSTRUCTION TO CALL WHEN NEEDED
[2018-02-02 09:00] VITALS: BP 148/73
[2018-02-02] MEDS: PANTOPRAZOLE SODIUM 40 MG VIAL IV SCH ×2 (09:00→09:39)
[2018-02-02] MEDS: OXCARBAZEPINE 300 MG TABLET PO SCH ×3 (09:00→20:14)
[2018-02-02] MEDS: METOPROLOL TARTRATE 50 MG TABLET PO SCH ×3 (09:00→20:14)
[2018-02-02] MEDS: ASPIRIN EC 81 MG TABLET.DR PO SCH (09:39)
[2018-02-02] MEDS: GUAIFENESIN LA 600 MG TABLET.SA PO SCH ×2 (09:40→20:13)
--- NOTE | 2018-02-02 09:45 | NUR ---
DR GONZALEZ SEEN PATIENT TO DAY AND ORDER NEW MEDICATION
--- NOTE | 2018-02-02 10:30 | NUR ---
PATIENT REFUSED TO TAKE REPERIDAL ,WILL TRY AGAIN LATER
--- NOTE | 2018-02-02 11:00 | NUR ---
SON AT BEDSIDE AND PATIENT TOOK AM MEDICATION ORDER CALM AND COOPERATE AT THIS TIME
[2018-02-02] MEDS: risperiDONE-M 0.5 MG TAB.RAPDIS PO SCH ×3 (11:20→20:25)
--- NOTE | 2018-02-02 12:30 | NUR ---
EAT LUNCH WELL OOB AMB IN THE RIDDLE WAY NO PAIN BUT HE HAS HALLUCIANATION SEEN PEOPLE /STATE SEEN PEOPLE BODY NEXT DOOR ,NO AGITATION NO S/I IDEAL
[2018-02-02 14:57] LABS: *AMPHETAMINE, URINE NEGATIVE (NEGATIVE); *BARBITURATE, URINE NEGATIVE (NEGATIVE); *CANNABINOID, URINE NEGATIVE (NEGATIVE); *COCCAINE, URINE NEGATIVE (NEGATIVE); *OPIATE, URINE NEGATIVE (NEGATIVE); *PHENCYCLIDINE SCREEN,URINE NEGATIVE (NEGATIVE)
[2018-02-02 15:19] VITALS: BP 149/62
--- NOTE | 2018-02-02 17:00 | NUR ---
REFUSED TO TAKE MEDICATION THIS EVENING STATE WANT TO GO HOME TOMORROW AND FEEL BETTER NOW,WILL TRY AGAIN LATER
--- NOTE | 2018-02-02 17:30 | NUR ---
STABLE CONDITION STILL HALLUCINATION AND NON COOPERATE BUT CALM NO AGITATION CLOSED OBSERVATION ON FALL PRECAUTION CALL HERNANDEZ IN REACH AND SITTER 1:1 AT BEDSVA NO S/I IDEAL
[2018-02-02] MEDS: ATORVASTATIN 40 MG TABLET PO SCH (20:13)
--- NOTE | 2018-02-02 20:19 | NUR ---
Pt selective about routine medications and refusing some medications. Unable to administer Lopressor as ordered- patient refusing to have vital signs to be taken at this time. 1:1 sitter at bedside for safety. No sob noted at this time, will continue to monitor closely.
--- NOTE | 2018-02-02 20:26 | NUR ---
Able to administer risperidone scheduled for 1700 endorsed to me by day shift primary care nurse.
[2018-02-02 20:50] VITALS: BP 140/62
[2018-02-02] MEDS ORDERED: ALBUTEROL SULFATE 2.5 MG/3 ML NEBU NEB PRN (21:45)
[2018-02-03] MEDS: IPRATROPIUM BROMIDE 0.5 MG/2.5 ML NEBU NEB SCH ×4 (00:36→19:22)
[2018-02-03 04:00] VITALS: BP 135/73
--- NOTE | 2018-02-03 06:00 | NUR ---
Stable condition. 1:1 sitter at bedside for safety. Pt still uncooperative with some care, no s/s of acute distress noted at this time. Safe environment implemented.
[2018-02-03 07:38] VITALS: BP 149/72
--- NOTE | 2018-02-03 07:59 | NUR ---
stable condition at this time. 1:1 sitter at bedside for safety. reorientation will be provided as needed. will stress importance of medication compliance to patient. no complaints of chest pain. will continue to monitor. safety measures implemented.
[2018-02-03] MEDS: GUAIFENESIN LA 600 MG TABLET.SA PO SCH ×2 (08:16→20:16)
[2018-02-03] MEDS: ASPIRIN EC 81 MG TABLET.DR PO SCH (08:16)
[2018-02-03] MEDS: methylPREDNISolone SOD SUCC 40 MG/ML VIAL IV SCH ×2 (08:16→20:17)
[2018-02-03] MEDS: METOPROLOL TARTRATE 50 MG TABLET PO SCH ×2 (08:16→20:17)
[2018-02-03] MEDS: PANTOPRAZOLE SODIUM 40 MG VIAL IV SCH (08:17)
[2018-02-03] MEDS: risperiDONE-M 0.5 MG TAB.RAPDIS PO SCH ×2 (08:28→16:06)
--- NOTE | 2018-02-03 08:45 | NUR ---
RECEIVED HAND OFF REPORT FROM YONY CALERO. PATIENT IN ROOM NO ACUTE DISTRESS NOTED. 1:! SITTER AT BEDSIDE FOR SAFETY. ON O2 @ 2LPM VIA NC, BUT PATIENT DOES NOT CONTINUOUSLY USE.NO COMPLAINTS OF PAIN AND DISCOMFORT. HAS EPISODES OF CONFUSION/AGITATION. COMFORT MEASURES PROVIDED. CALL LIGHT WITHIN REACH WILL CONTINUE TO MONITOR CLOSELY.
[2018-02-03] MEDS: OXCARBAZEPINE 300 MG TABLET PO SCH ×2 (09:10→20:16)
[2018-02-03 16:00] VITALS: BP 133/76
--- NOTE | 2018-02-03 18:39 | NUR ---
PATIENT IN ROOM. STABLE THROUGHOUT SHIFT. 1:1 SITTER AT BEDSIDE. HAD EPISODES OF AGITATION BUT PATIENT REDIRECTABLE. ALL NEEDS ATTENDED AND ANTICIPATED. CALL LIGHT WITHIN REACH.
--- NOTE | 2018-02-03 19:47 | NUR ---
PATIENT SEATED IN BED, AAOX3 WITH CONFUSION AND AGITATION AT TIMES. DENIES PAIN OR ANY DISTRESS ON ASSESSMENT 1:1 SITTER AT BEDSIDE FOR SAFETY
[2018-02-03 19:56] VITALS: BP 127/72
[2018-02-03] MEDS: ATORVASTATIN 40 MG TABLET PO SCH (20:16)
[2018-02-04] MEDS: IPRATROPIUM BROMIDE 0.5 MG/2.5 ML NEBU NEB SCH ×4 (00:07→19:25)
[2018-02-04 06:22] VITALS: BP 136/66
--- NOTE | 2018-02-04 06:23 | NUR ---
PATIENT SLEPT WELL ON THIS SHIFT NO C/O SOB OR ACUTE DISTRESS ON THIS SHIFT. NO S/S OF PAIN OR DISCOMFORT AT THIS TIME. SITTER REMAINS AT BEDSIDE FOR SAFETY. NO FURTHER CHANGES IN STATUS
[2018-02-04] MEDS ORDERED: PANTOPRAZOLE SODIUM 40 MG TABLET.DR PO SCH (07:00)
--- NOTE | 2018-02-04 07:10 | NUR ---
PATIENT RECEIVED SLEEPING IN BED THIS AM WITH SITTER AT BEDSIDE FOR SAFETY, NO DISTRESS NOTED FROM PATIENT CONTINUE TO MONITOR
--- NOTE | 2018-02-04 08:45 | NUR ---
PATIENT IRRITABLE THIS AM, REQUESTING TO REST THIS AM AND NOT BE DISTURBED, REFUSED AM VITALS PRIOR TO MEDS. PATIENT WILL CONTINUE TO MONITOR AND ATTEMPT TO GIVE MEDS. SITTER REMAINS AT SIDE FOR SAFETY
[2018-02-04 09:52] VITALS: BP 145/82
[2018-02-04 09:54] VITALS: BP 145/82
[2018-02-04] MEDS: OXCARBAZEPINE 300 MG TABLET PO SCH (09:54)
[2018-02-04] MEDS: risperiDONE-M 0.5 MG TAB.RAPDIS PO SCH ×2 (09:54→17:01)
[2018-02-04] MEDS: METOPROLOL TARTRATE 50 MG TABLET PO SCH (09:54)
[2018-02-04] MEDS: GUAIFENESIN LA 600 MG TABLET.SA PO SCH (09:54)
[2018-02-04] MEDS: methylPREDNISolone SOD SUCC 40 MG/ML VIAL IV SCH (09:55)
[2018-02-04] MEDS: ASPIRIN EC 81 MG TABLET.DR PO SCH ×2 (09:55→10:02)
--- NOTE | 2018-02-04 12:33 | NUR ---
PATIENT REFUSED AM LABS FOR 2 DAYS, DR REED AWARE, HAS BEEN MEDICALLY CLEARED FOR DISCHARGE AND PSYCHIATRIC WELL BY DR GONZALEZ. DOCTORS AWARE OF PATIENT FREQUENT PROMPTING NEEDED FOR MEDS AND PARANOIA, LABILE THIS AM. CONTINUE WITH DISCHARGE AT THIS TIME.
[2018-02-04] MEDS ORDERED: GUAI600T53 PO ×2 (14:20→21:02)
[2018-02-04] MEDS ORDERED: ATOR20TA PO (14:20)
[2018-02-04] MEDS ORDERED: METH4TAB3 PO ×2 (14:20→21:02)
[2018-02-04] MEDS ORDERED: OXCA300T4 PO (14:20)
[2018-02-04] MEDS ORDERED: ALBU2.5V13 NEB (14:20)
[2018-02-04] MEDS ORDERED: POLY17PO4 PO (14:20)
[2018-02-04] MEDS ORDERED: IPRA0.2S6 NEB (14:20)
[2018-02-04] MEDS ORDERED: CLON0.5T12 PO ×2 (14:20→21:02)
[2018-02-04] MEDS ORDERED: PANT40TA2 PO ×2 (14:20→21:02)
[2018-02-04] MEDS ORDERED: RISP1TAB27 PO (14:20)
[2018-02-04] MEDS ORDERED: ACET325T53 PO (14:20)
--- NOTE | 2018-02-04 15:56 | NUR ---
PATIENT REPORTS HAVING BOWEL MOVEMENT EVERYDAY, ABDOMEN SOFT. LAST BOWEL MOVEMENT THIS AM PER PATIENT.
--- NOTE | 2018-02-04 16:00 | NUR ---
patient continues anxious, paranoid this afternoon, refusing to have any information given to his family, believes he is here because of his sister, paranoid and suspicious, patient redirected, continues suspicious. poor insight.
--- NOTE | 2018-02-04 17:00 | NUR ---
patient verbalizing that we stop giving him medication, we are only trying to kill him, patient remains paranoid, patient verbalizing not to send him to facility but [place] the [place] because he needs to .
--- NOTE | 2018-02-04 18:10 | NUR ---
patient reporting to EMT transport that he is going to kill him , patient stating he would go to nursing staff then changing his mind that he is not going anywhere to send him to cemetery to . Dr Jones notified, per MD notify Crisis team for Evaluation. Lucas Garcia, Notified. Discharge canceled to SNF, patient will need to be admitted to Mental health if placed on Hold per Dr Jones
--- NOTE | 2018-02-04 18:48 | NUR ---
Spoke with ABDIAS Mcallister at [facility] notified of cancel of discharge at this time.
--- NOTE | 2018-02-04 18:50 | NUR ---
patient remains paranoid of meds, suspicious. patient believes his sister called yesterday and got him into trouble. patient depressed verbalizing he needs to go to cemetery, Lucas Garcia, from Crisis Team here to evaluate patient.
--- NOTE | 2018-02-04 20:00 | NUR ---
PATIENT DISCHARGED TO MENTAL HEALTH ORDERED. PATIENT LEFT IN STABLE CONDITION.
[2018-02-04] MEDS ORDERED: POLY17PO3 PO (21:02)
[2018-02-04] MEDS ORDERED: FLUT100B3 IH (21:02)
[2018-02-04] MEDS ORDERED: ASPI81TA31 PO (21:02)
[2018-02-04] MEDS ORDERED: METO50TA16 PO (21:02)
[2018-02-05] MEDS ORDERED: OXCARBAZEPINE 300 MG TABLET PO SCH (09:15)
[2018-02-05] MEDS ORDERED: risperiDONE 1 MG TABLET PO SCH (09:15)
== END 2018-02-04 19:52 | DRG 191 ==
LOC: ER 11:28 → TELE 14:09 → MED 02-02 16:31
PROVIDERS: ADMIT Internal Medicine; ATTEND Internal Medicine
DX: J44.1 Chronic obstructive pulmonary disease with (acute) exacerbation (principal); F31.64 Bipolar disorder, current episode mixed, severe, with psychotic features; E78.5 Hyperlipidemia, unspecified; F31.9 Bipolar disorder, unspecified; I10 Essential (primary) hypertension; I25.10 Atherosclerotic heart disease of native coronary artery without angina pectoris; M19.90 Unspecified osteoarthritis, unspecified site; Z87.891 Personal history of nicotine dependence; F03.90 Unspecified dementia, unspecified severity, without behavioral disturbance, psychotic disturbance, mood disturbance, and anxiety; N40.0 Benign prostatic hyperplasia without lower urinary tract symptoms
CPT/HCPCS: 36415; 70030-TC; 71045; 80307; 83735; 84100; 85025; 93005; 94640; 94664; A4663; C9113; G0378; J2920; J2930; J3590

== ENCOUNTER 2018-02-04 20:02 | Inpatient (IN) | payer MEDICARE, OTHER ==
[~2018-02-04] VITALS: Ht 167.6 cm; Wt 73.9 kg
[~2018-02-04 20:02] MED LIST changes: +ACET325T53 PO; +ALBU2.5V13 NEB; -ALBU2.5V7 NEB; +ASPI-605 PO; +ATOR40TA PO; +CLON0.5T12 PO; +DIVA500T4 PO; +FLUT100B3 IH; +GUAI600T53 PO; +IPRA3AMP22 IH; -MENT71OI TOP; +METH4TAB3 PO; -METO25TA6 PO; +METO50TA16 PO; +OXCA150T5 PO; +OXCA300T4 PO; +PANT40TA2 PO; +POLY17PO4 PO; +RISP1TAB27 PO
[2018-02-04] MEDS ORDERED: MAG HYDROX/AL HYDROX/SIMETH 30 ML LIQUID UDC PO PRN (20:15)
[2018-02-04] MEDS ORDERED: ACETAMINOPHEN 325 MG TABLET PO PRN (20:15)
[2018-02-04] MEDS ORDERED: MAGNESIUM HYDROXIDE 30 ML LIQUID UDC PO PRN (20:15)
[2018-02-04] MEDS ORDERED: ZOLPIDEM 5 MG TABLET PO PRN (20:15)
[2018-02-04] MEDS ORDERED: methylPREDNISolone 4 MG TABLET (DAY#1, HS) PO ONE (21:00)
[2018-02-04] MEDS ORDERED: METH4TAB3 PO (21:02)
[2018-02-04] MEDS ORDERED: CLON0.5T12 PO (21:02)
[2018-02-04] MEDS ORDERED: METO50TA16 PO (21:02)
[2018-02-04] MEDS ORDERED: FLUT100B3 IH (21:02)
[2018-02-04] MEDS ORDERED: GUAI600T53 PO (21:02)
[2018-02-04] MEDS ORDERED: PANT40TA2 PO (21:02)
[2018-02-04] MEDS ORDERED: POLY17PO3 PO (21:02)
[2018-02-04] MEDS ORDERED: ASPI81TA31 PO (21:02)
[2018-02-04] MEDS ORDERED: MIRALAX 17 GM POWD.PACK PO PRN (21:15)
[2018-02-04] MEDS ORDERED: ALBUTEROL SULFATE 2.5 MG/ 0.5 ML NEBU NEB PRN (21:15)
[2018-02-04] MEDS ORDERED: methylPREDNISolone 1 PACK TAB.DS.PK [4MG TAB] PO SCH (21:15)
[2018-02-04] MEDS: METOPROLOL TARTRATE 50 MG TABLET PO SCH (21:15)
[2018-02-04] MEDS ORDERED: IPRATROPIUM BROMIDE 0.5 MG/2.5 ML NEBU NEB PRN (21:15)
[2018-02-04] MEDS: LORAZEPAM 1 MG TABLET PO PRN (22:11)
[2018-02-04] MEDS ORDERED: methylPREDNISolone 4 MG TABLET (DAY#1) PO ONE (22:30)
[2018-02-05 05:27] VITALS: BP 181/95
[2018-02-05] MEDS ORDERED: methylPREDNISolone 4 MG TABLET (DAY#2, ACB) PO ONE (07:30)
[2018-02-05] MEDS ORDERED: risperiDONE 1 MG TABLET PO SCH (09:00)
[2018-02-05] MEDS: PANTOPRAZOLE SODIUM 40 MG TABLET.DR PO SCH (09:00)
[2018-02-05] MEDS: ASPIRIN EC 81 MG TABLET.DR PO SCH (09:00)
[2018-02-05] MEDS: METOPROLOL TARTRATE 50 MG TABLET PO SCH ×2 (09:00→20:19)
[2018-02-05] MEDS ORDERED: OXCARBAZEPINE 300 MG TABLET PO SCH (09:00)
[2018-02-05] MEDS: GUAIFENESIN LA 600 MG TABLET.SA PO SCH ×2 (09:00→20:13)
[2018-02-05] MEDS: FLUTICASONE/VILANTEROL 1 EACH BLST.W.DEV INH SCH (09:11)
[2018-02-05] MEDS: risperiDONE 1 MG TABLET PO SCH ×2 (09:30→16:52)
[2018-02-05] MEDS: OXCARBAZEPINE 300 MG TABLET PO SCH ×2 (09:30→20:11)
[2018-02-05] MEDS ORDERED: methylPREDNISolone 4 MG TABLET (DAY#2, PC LUNCH) PO ONE (12:30)
[2018-02-05] MEDS ORDERED: methylPREDNISolone 4 MG TABLET (DAY#2, PC DINNER) PO ONE (17:30)
[2018-02-05] MEDS: ATORVASTATIN 20 MG TABLET PO SCH (20:11)
[2018-02-05] MEDS ORDERED: methylPREDNISolone 4 MG TABLET (DAY#2, HS) PO ONE (21:00)
[2018-02-06 07:30] VITALS: BP 154/89
[2018-02-06] MEDS ORDERED: methylPREDNISolone 4 MG TABLET (DAY#3, ACB) PO ONE (07:30)
[2018-02-06] MEDS: FLUTICASONE/VILANTEROL 1 EACH BLST.W.DEV INH SCH (08:00)
[2018-02-06] MEDS: METOPROLOL TARTRATE 50 MG TABLET PO SCH ×2 (08:01→21:00)
[2018-02-06] MEDS: ASPIRIN EC 81 MG TABLET.DR PO SCH (08:01)
[2018-02-06] MEDS: GUAIFENESIN LA 600 MG TABLET.SA PO SCH ×2 (08:01→21:00)
[2018-02-06] MEDS: OXCARBAZEPINE 300 MG TABLET PO SCH ×2 (08:02→21:00)
[2018-02-06] MEDS: risperiDONE 1 MG TABLET PO SCH ×2 (08:02→16:47)
[2018-02-06] MEDS: PANTOPRAZOLE SODIUM 40 MG TABLET.DR PO SCH (08:02)
[2018-02-06] MEDS ORDERED: methylPREDNISolone 4 MG TABLET (DAY#3, PC LUNCH) PO ONE (12:30)
[2018-02-06] MEDS ORDERED: methylPREDNISolone 4 MG TABLET (DAY#3, PC DINNER) PO ONE (17:30)
[2018-02-06] MEDS: ATORVASTATIN 20 MG TABLET PO SCH (21:00)
[2018-02-06] MEDS ORDERED: methylPREDNISolone 4 MG TABLET (DAY#3, HS) PO ONE (21:00)
[2018-02-07] MEDS ORDERED: methylPREDNISolone 4 MG TABLET (DAY#4, ACB) PO ONE (07:30)
[2018-02-07] MEDS: OXCARBAZEPINE 300 MG TABLET PO SCH ×3 (08:38→20:30)
[2018-02-07] MEDS: GUAIFENESIN LA 600 MG TABLET.SA PO SCH ×3 (08:39→20:30)
[2018-02-07] MEDS: risperiDONE 1 MG TABLET PO SCH ×2 (08:39→16:39)
[2018-02-07] MEDS: ASPIRIN EC 81 MG TABLET.DR PO SCH ×2 (08:39→08:43)
[2018-02-07] MEDS: METOPROLOL TARTRATE 50 MG TABLET PO SCH ×2 (08:42→20:29)
[2018-02-07] MEDS: FLUTICASONE/VILANTEROL 1 EACH BLST.W.DEV INH SCH (08:42)
[2018-02-07] MEDS: PANTOPRAZOLE SODIUM 40 MG TABLET.DR PO SCH (09:00)
[2018-02-07] MEDS ORDERED: methylPREDNISolone 4 MG TABLET (DAY#4, PC LUNCH) PO ONE (12:30)
[2018-02-07] MEDS: ATORVASTATIN 20 MG TABLET PO SCH (20:29)
[2018-02-07] MEDS ORDERED: methylPREDNISolone 4 MG TABLET (DAY#4, HS) PO ONE (21:00)
[2018-02-08] MEDS ORDERED: methylPREDNISolone 4 MG TABLET (DAY#5, ACB) PO ONE (07:30)
[2018-02-08] MEDS: risperiDONE 1 MG TABLET PO SCH ×2 (08:15→16:42)
[2018-02-08] MEDS: ASPIRIN EC 81 MG TABLET.DR PO SCH (08:15)
[2018-02-08] MEDS: FLUTICASONE/VILANTEROL 1 EACH BLST.W.DEV INH SCH (08:15)
[2018-02-08] MEDS: PANTOPRAZOLE SODIUM 40 MG TABLET.DR PO SCH (08:16)
[2018-02-08] MEDS: GUAIFENESIN LA 600 MG TABLET.SA PO SCH ×2 (08:16→21:04)
[2018-02-08] MEDS: OXCARBAZEPINE 300 MG TABLET PO SCH ×3 (08:16→21:04)
[2018-02-08] MEDS: METOPROLOL TARTRATE 50 MG TABLET PO SCH ×2 (08:16→21:00)
[2018-02-08] MEDS ORDERED: methylPREDNISolone 4 MG TABLET (DAY#5, HS) PO ONE (21:00)
[2018-02-08] MEDS: ATORVASTATIN 20 MG TABLET PO SCH (21:04)
[2018-02-09] MEDS ORDERED: methylPREDNISolone 4 MG TABLET (DAY#6, ACB) PO ONE (07:30)
[2018-02-09] MEDS: ASPIRIN EC 81 MG TABLET.DR PO SCH (09:00)
[2018-02-09] MEDS: PANTOPRAZOLE SODIUM 40 MG TABLET.DR PO SCH (09:00)
[2018-02-09] MEDS: OXCARBAZEPINE 300 MG TABLET PO SCH ×2 (09:00→20:10)
[2018-02-09] MEDS: GUAIFENESIN LA 600 MG TABLET.SA PO SCH ×2 (09:00→20:09)
[2018-02-09] MEDS: METOPROLOL TARTRATE 50 MG TABLET PO SCH ×2 (09:00→20:12)
[2018-02-09] MEDS: FLUTICASONE/VILANTEROL 1 EACH BLST.W.DEV INH SCH (09:42)
[2018-02-09] MEDS: risperiDONE 1 MG TABLET PO SCH ×2 (09:42→16:36)
[2018-02-09] MEDS: ATORVASTATIN 20 MG TABLET PO SCH (20:12)
[2018-02-10] MEDS: FLUTICASONE/VILANTEROL 1 EACH BLST.W.DEV INH SCH (09:00)
[2018-02-10] MEDS: risperiDONE 1 MG TABLET PO SCH ×2 (09:00→17:00)
[2018-02-10] MEDS: METOPROLOL TARTRATE 50 MG TABLET PO SCH (09:00)
[2018-02-10] MEDS: PANTOPRAZOLE SODIUM 40 MG TABLET.DR PO SCH (09:00)
[2018-02-10] MEDS: OXCARBAZEPINE 300 MG TABLET PO SCH ×2 (09:00→09:48)
[2018-02-10] MEDS: ASPIRIN EC 81 MG TABLET.DR PO SCH (09:00)
[2018-02-10] MEDS: LORAZEPAM 1 MG TABLET PO PRN (17:04)
== END 2018-02-10 18:55 | DRG 885 ==
LOC: GPS 20:02
PROVIDERS: ADMIT Psychiatry & Neurology Psychiatry; ATTEND Internal Medicine
DX: F31.64 Bipolar disorder, current episode mixed, severe, with psychotic features (principal); J44.1 Chronic obstructive pulmonary disease with (acute) exacerbation; N40.1 Benign prostatic hyperplasia with lower urinary tract symptoms; R35.0 Frequency of micturition; Z79.82 Long term (current) use of aspirin; Z74.09 Other reduced mobility; M19.90 Unspecified osteoarthritis, unspecified site; E78.5 Hyperlipidemia, unspecified; Z79.899 Other long term (current) drug therapy; I25.10 Atherosclerotic heart disease of native coronary artery without angina pectoris; I70.0 Atherosclerosis of aorta; Z87.891 Personal history of nicotine dependence
CPT/HCPCS: A4663; J3590; J7509